=== PATIENT | female | born 1990 | race Caucasian/White ===

== ENCOUNTER → 2016-07-16 | Outpatient (REF) ==
[~2016-07-16] MED LIST: LEVSIN 0.10.125 MG/T PO; MULTIPLE VITAMI1 CAP PO; NORGESTIMATE AN1 TAB PO; PROAIR HFA0.09 MG/AC IH; VALERIAN ROOT100 MG PO; ZYRTEC 10MG10 MG PO
== END ==
LOC: WSOH 15:00
DX: Z02.89 Encounter for other administrative examinations (principal)

== ENCOUNTER 2016-08-14 07:26 | Outpatient (CLI) | payer OTHER ==
[~2016-08-14] VITALS: Ht 180.3 cm; Wt 93.1 kg
[2016-08-14] MEDS ORDERED: PROAIR HFA0.09 MG/AC IH (08:18)
[2016-08-14] MEDS ORDERED: ZYRTEC 10MG10 MG PO (08:18)
[2016-08-14] MEDS ORDERED: LEVSIN 0.10.125 MG/T PO (08:19)
[2016-08-14] MEDS ORDERED: MULTIPLE VITAMI1 CAP PO (08:28)
[2016-08-14] MEDS ORDERED: NORGESTIMATE AN1 TAB PO (08:29)
[2016-08-14] MEDS ORDERED: VALERIAN ROOT100 MG PO (08:30)
[2016-08-14 08:35] VITALS: BP 124/75; PULSE 72; TEMP 98
[2016-08-14 09:57] VITALS: BP 116/73; PULSE 65; TEMP 98.7
== END 2016-08-14 10:41 | disposition home or self-care (01) ==
LOC: EUO 07:26 → COL.RAD 07:30 → EUO 10:41
DX: R55 Syncope and collapse (principal)